=== PATIENT | female | born 1955 | race Two or more races ===

== ENCOUNTER → 2021-06-18 | Outpatient (CLI) | payer OTHER ==
[~2021-06-18] MED LIST: GADOTERATE 7.5 MMOL/15ML VIAL. IVP ONE
--- NOTE | 2021-06-18 14:56 | RAD ---
EXAM: MRI ABDOMEN WITH AND WITHOUT CONTRAST. HISTORY: Renal mass. TECHNIQUE: MRI of the abdomen was performed before and after the intravenous administration of 15 mL Clariscan. COMPARISON: None available. FINDINGS: Kidneys: A mass laterally within the right renal interpolar region measures 2.5 x 1.8 x 2.3 cm. It is mostly macroscopic fat signal with thin soft tissue signal septa. This is consistent with a benign a ngiomyolipoma. There are no suspicious lesions bilaterally. Liver: Hepatic parenchymal signal loss on opposed phase images indicates mild diffuse hepatic steatos is. There are no suspicious hepatic lesions. Biliary tree: The gallbladder is surgically absent. The common duct is not dilated. There are no susp icious pancreatic parenchymal lesions. The pancreatic duct is not dilated. Other findings: The adrenal glands and spleen are unremarkable. IMPRESSION: 1. 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 No suspicious renal l esions. Sonographic follow-up could be considered in one year to demonstrate stability. Electronically signed by: America Garcia MD (06/18/2021 2:54 PM) [email or web address]
== END ==
LOC: MRI 09:59
PROVIDERS: ATTEND Nurse Practitioner
DX: N28.89 Other specified disorders of kidney and ureter (principal); K76.0 Fatty (change of) liver, not elsewhere classified; Z90.49 Acquired absence of other specified parts of digestive tract
CPT/HCPCS: 74183; A9575